=== PATIENT | female | born 2000 | race Caucasian/White ===

== ENCOUNTER 2024-10-26 08:07 | Emergency (ER) | payer BC, SELFPAY ==
[2024-10-26 08:07] VITALS: BP 144/97; PULSE 68; RESP 16; TEMP 36.9; O2SAT 100; BMI 25.5
[2024-10-26] MEDS: Ondansetron 4 MG/2 ML Vial IV (08:36)
[2024-10-26] MEDS: 0.9% Normal Saline (500mL Bag) 500 ML 1000 ML IV (08:37)
[2024-10-26] MEDS: Ketorolac 30 MG/ML Syringe IV (08:37)
[2024-10-26] MEDS: Acetaminophen 500 MG Tablet 1000 MG PO (08:37)
[2024-10-26 09:02] LABS: Absolute Lymphocyte Count 1.38 X10^3/uL (0.83-4.51); Absolute Neutrophil Count 1.6 X10^3/uL (2.0-7.7); Basophil# 0.04 X10^3/uL; Basophil% 1.1 % (0-1); Eosinophil# 0.07 X10^3/uL; Hematocrit 38.8 % (37-47); Hemoglobin 13.5 g/dL (12.0-15.0); Lymphocyte # 1.38 X10^3/ul (0.83-4.51); Lymphocyte % 39.3 % (19-41); Mean Corp Hgb Conc 34.8 g/dL (32-36); Mean Corpuscular Hgb 29.9 pg (27.0-32.0); Mean Platelet Vol. 9.6 fl (6.2-12.0); Monocyte# 0.41 X10^3/uL; Monocyte% 11.7 % (0-10); NRBC Flagged by Analyzer 0 % (0-5); Neutrophil % 45.6 % (47-70); POSITIVE MORPHOLOGY YES; Platelet Count 226 K/mm3 (150-450); RBC Distribution Width CV 12.1 % (11.6-14.6); RBC Distribution Width SD 37.6 fl (35.1-43.9); Red Blood Count 4.51 M/mm3 (4.2-5.4); White Blood Count 3.5 K/mm3 (4.4-11.0)
[2024-10-26 09:03] LABS: Differential Indicated SCAN CRITERIA MET
[2024-10-26 09:07] VITALS: BP 113/81; PULSE 76; RESP 16; O2SAT 99
[2024-10-26 09:12] LABS: Anion Gap 6 (5-15); BUN 7 mg/dL (7-18); BUN/Creat Ratio 9.1 RATIO (10-20); Calcium,Total 8.9 mg/dL (8.5-10.1); Chloride 111 mmol/L (98-107); Creatinine, Serum 0.77 mg/dL (0.55-1.02); EST Glomerular Filtration Rate 99 mL/min (>60); Est Glom Filt Rate - Afr Amer 120 mL/min (>60); Estimated Creatinine Clearance 120.49 ml/min; Glucose 95 mg/dL (74-106); Sodium Level 141 mmol/L (136-145)
[2024-10-26 09:24] VITALS: O2SAT 98
[2024-10-26 09:34] LABS: Differential Comment SCANNED; Reactive Lymphocyte 1+
[2024-10-26 09:46] VITALS: BP 113/81; PULSE 74; RESP 16; TEMP 36.3; O2SAT 98
== END 2024-10-26 09:48 | disposition home or self-care (01) ==
PROVIDERS: Emergency Provider Emergency Medicine; PCP Nurse Practitioner Family; Visit Provider Emergency Medicine
DX: R55 Syncope and collapse (principal); G43.909 Migraine, unspecified, not intractable, without status migrainosus; Z79.899 Other long term (current) drug therapy
CPT/HCPCS: 80048; 85025; 93005; 96374; 96375; 99284; J7040; A4216; J2405